=== PATIENT | female | born 1960 | race Caucasian/White ===

== ENCOUNTER 2017-04-10 09:41 | Emergency (ER) | payer MEDICARE ==
[2017-04-10] MEDS ORDERED: fentaNYL* 50 MCG/ML 2 ML VIAL (100 MCG VIAL) IV SLOW PU ONE ×2 (10:30→12:35)
[2017-04-10] MEDS ORDERED: Dexamethasone IV* 4 MG/ML 5 ML VIAL (20 MG) IVPB ONE (10:30)
[2017-04-10] MEDS ORDERED: Ketorolac INJ* 30 MG/ML 1 ML VIAL IV PUSH ONE (10:30)
[2017-04-10] MEDS ORDERED: Orphenadrine Citrate IV* 30 MG/ML 2 ML VIAL IV ONE (10:30)
--- NOTE | 2017-04-10 11:46 | RAD ---
HISTORY: Back pain COMPARISONS: CT dated April 04, 2015 VIEWS: 5 , Frontal, lateral, and coned-down lateral sacral views of the lumbar spine, frontal and lateral views of the thoracic spine FINDINGS: ALIGNMENT: There is mild sclerotic curvature of the spine VERTEBRAL BODIES: There is diffuse osteopenia. There is compression deformity of T12, this is stable from the previous CT examination. There has been interval development of anterior wedging of the L4 vertebral body. There is no significant osseous retropulsion JOINTS: There is facet hypertrophic change most pronounced along the lower lumbar spine INTERVERTEBRAL DISCS: There is diffuse loss of intervertebral disc height. SOFT TISSUE: Unremarkable. OTHER: The pelvis is unremarkable. The lung bases are clear. IMPRESSION: 1. OSTEOPENIA. 2. 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 3. CHRONIC COMPRESSION DEFORMITY OF T12. 4. DEGENERATIVE DISC DISEASE AND OSTEOARTHRITIS
[2017-04-10 13:03] VITALS: BP 104/63
--- NOTE | 2017-04-10 16:40 | ED ---
Breonna Cerda Auryana, scribed for Jase Mcfarland MD on 04/10/17 at 1222 . Back Pain - HPI Summary HPI Summary: 57 year old female presents with sharp back pain back pain s/p kicking out a bus window. Patient states that she was trapped in a bus bathroom while cleaning it - 06:00 until 09:30 - and the only way to get out was to kick out the window. She reports that she heard a snap and couldn't do anything after that. The pain is located at the middle and across her low back radiating down her legs. Currently, the pain is a 10/10. She denies any urinary or fecal incontinence/dysfunction. PMHx is significant for asthma, kidney stones, back injury (T12), gastric bypass, gastric ulcers, and incisional ventral hernia. She denies any back surgeries. FHx is significant for CAD, HTN, HLD, DVT, breast CA, MARYJANE, and glioblastoma. SHx is significant for tobacco use - rare alcohol and o recreational drug use. - History of Current Complaint Chief Complaint: EDBackInjuryPain Stated Complaint: BACK PAIN Time Seen by Provider: 04/10/17 10:04 Hx Obtained From: Patient Hx Last Menstrual Period: N/A Onset/Duration: Sudden Onset Onset/Duration: Started Hours Ago, Traumatic, Still Present Timing: Constant Back Pain Location: Is Discrete @ - MIDDLE AND ACROSS THE LOW BACK, Radiates To - down the legs Severity Initially: Severe Severity Currently: Severe Pain Intensity: 10 Pain Scale Used: 0-10 Numeric Character: Sharp Associated Signs And Symptoms: Positive: Negative. Negative: Bladder Incontinence, Bowel Incontinence Related History: Previous Back Injury - to T12 - Allergies/Home Medications Allergies/Adverse Reactions: Allergies Allergy/AdvReac Type Severity Reaction Status Date / Time Ethanol [From Lortab Elixir] Allergy HIVES AND Verified 08/28/16 13:55 SWELLING Hydrocodone Allergy HIVES AND Verified 08/28/16 13:55 [From Lortab Elixir] SWELLING PMH/Surg Hx/FS Hx/Imm Hx Endocrine/Hematology History: Denies: Hx Diabetes, Other Endocrine/Hematological Disorders Cardiovascular History: Denies: Hx Pacemaker/ICD, Other Cardiovascular Problems/Disorders Respiratory History: Reports: Hx Asthma - no flare ups lately, Hx Sleep Apnea Denies: Other Respiratory Problems/Disorders GI History: Reports: Hx Gastroesophageal Reflux Disease, Hx Ulcer Denies: Other GI Disorders History: Reports: Hx Kidney Stones, Other Problems/Disorders - Hx nephrolithiasis Musculoskeletal History: Reports: Hx Arthritis - BACK, RIGHT ARM Denies: Other Musculoskeletal History Sensory History: Reports: Hx Contacts or Glasses - GLASSES Denies: Hx Hearing Aid, Other Sensory Impairments Opthamlomology History: Reports: Hx Contacts or Glasses - GLASSES Denies: Other Sensory Impairments Neurological History: Denies: Other Neuro Impairments/Disorders Psychiatric History: Denies: Hx Panic Disorder, Other Psychiatric Issues/Disorders - Cancer History Hx Chemotherapy: No Hx Radiation Therapy: No - Surgical History Surgery Procedure, Year, and Place: gastric bypass 2009,GALLBLADDER -[facility] [place] , BLADDER SLING X2-[facility] [place],RT CARPAL TUNNEL X2, HERNIA SUGERY [facility] [place] 2011, ulcer Hx Anesthesia Reactions: No - Immunization History Date of Tetanus Vaccine: Up to date. Date of Influenza Vaccine: Fall 2011 Infectious Disease History: Denies: Traveled Outside the [place] in Last 30 Days - Family History Known Family History: Positive: Cardiac Disease, Hypertension - Social History Occupation: Disabled Lives: Alone Alcohol Use: None Substance Use Type: Reports: None Smoking Status (MU): Heavy Every Day Tobacco Smoker Type: Cigarettes Amount Used/How Often: 1.5 PACKS A DAY Have You Smoked in the Last Year: No Review of Systems Constitutional: Negative Negative: Fever Eyes: Negative ENT: Negative Cardiovascular: Negative Respiratory: Negative Gastrointestinal: Negative Genitourinary: Negative Negative: incontinence, other - no bowel incontinence Positive: Arthralgia - back pain Skin: Negative Neurological: Negative Psychological: Normal All Other Systems Reviewed And Are Negative: Yes Physical Exam - Summary Physical Exam Summary: General: Patient is a well developed female without any distress that is laying comfortably in the stretcher. Skin: Circle, warm, dry HEAD AND FACE: No signs of trauma. EYES: PERRLA, EOMI x 2. EARS: Hearing grossly intact. MOUTH: Oropharynx within normal limits. NECK: Supple, trachea is midline, no adenopathy, no JVD. CHEST: Symmetric, no tenderness at palpation LUNGS: CTA bilaterally, no rales, rhonchi or wheezing CVS: RRR, no murmur, rub, or gallop ABDOMEN: soft and Nontender without masses, no guarding or rebound. Bowel sounds are active. No Hepato-splenomegaly. No signs of inguinal hernias. BACK: Patient walked into the ED room with symmetric ambulation, No signs of limping, antalgic, able to bear weight. No signs of trauma, no soft tissue or muscle tenderness, positive spasm in the Paraspinal muscles of the lumbar and thoraccic spine. No masses palpated. Positive vertebral tenderness. No CVAT, no flank ecchymosis . No sacroiliac notch tenderness, No saddle anesthesia ROM: flexion/ extension/ lateral bending and rotation, note if limited or causes pain Straight Leg Raise: negative Patellar reflexes: brisk, symmetric Muscle strength lower extremities. Dorsiflexion/ plantar flexion of ankles. Heel/ toe walk Lower extremities: Femoral, popliteal, posterior tibial, and pedal pulses with in normal, Rectal exam declined. Triage Information Reviewed: Yes Vital Signs On Initial Exam: Initial Vitals Temp Pulse Resp BP Pulse Ox 98.2 F 76 18 117/77 99 04/10/17 09:45 04/10/17 09:45 04/10/17 09:45 04/10/17 09:45 04/10/17 09:45 Vital Signs Reviewed: Yes - Marianne Coma Scale Coma Scale Total: 15 Diagnostics - Vital Signs Vital Signs Temp Pulse Resp BP Pulse Ox 04/10/17 09:48 98.2 F 76 16 117/77 98 04/10/17 09:45 98.2 F 76 18 117/77 99 - Laboratory Lab Statement: Any lab studies that have been ordered have been reviewed, and results considered in the medical decision making process. - Radiology THORACIC Xray Interpretation: Positive (See Comments) - IMPRESSION: 1. OSTEOPENIA. 2. 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 3. CHRONIC COMPRESSION DEFORMITY OF T12. 4. DEGENERATIVE DISC DISEASE AND OSTEOARTHRITIS Radiology Interpretation Completed By: Radiologist LUMBAR Xray Interpretation: Positive (See Comments) - IMPRESSION: 1. OSTEOPENIA. 2. 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 3. CHRONIC COMPRESSION DEFORMITY OF T12. 4. DEGENERATIVE DISC DISEASE AND OSTEOARTHRITIS Radiology Interpretation Completed By: Radiologist Re-Evaluation - Re-Evaluation First Eval Re-Evaluation Time: 12:33 - discussed plan for discharge Change: Improved - patient walked to the bathroom and her pain is much improved Back Pain Course/Dx - Course Assessment/Plan: 57 year old female presents with sharp back pain back pain s/p kicking out a bus window. Patient states that she was trapped in a bus bathroom while cleaning it - 06:00 until 09:30 - and the only way to get out was to kick out the window. She reports that she heard a snap and couldn't do anything after that. The pain is located at the middle and across her low back radiating down her legs. Currently, the pain is a 10/10. She denies any urinary or fecal incontinence/dysfunction. PMHx is significant for asthma, kidney stones, back injury (T12), gastric bypass, gastric ulcers, and incisional ventral hernia. She denies any back surgeries. FHx is significant for CAD, HTN, HLD, DVT, breast CA, MARYJANE, and glioblastoma. SHx is significant for tobacco use - rare alcohol and o recreational drug use. T and L spine X ray IMPRESSION: 1. OSTEOPENIA. 2. 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 3. CHRONIC COMPRESSION DEFORMITY OF T12. 4. DEGENERATIVE DISC DISEASE AND OSTEOARTHRITIS. In the ED course she was given Toradol. Fentanyl, Decadron, Norflex. After medications she is feeling better. She was able to get up and ambulate to the bathroom. She reports no urinary or fecal discomfort. She reports no saddle anesthesia. She declined rectal exam. She is afebrile. I did not identify any red flags at this point. Since pain has improved I will discharge patient home with f/u of PMD and neurosurgery. She walked out of the emergency department. At this point I discussed all the findings and test results with the patient. Patient was instructed to return to the emergency room immediately if any of the symptoms return or worsens. Patient understands and agrees. Patient is able to ambulate freely w/o aid or limp in the ER. Plan of care was discussed with the patient and patient understands and agrees. All questions were answered at patient satisfaction. There were no further complaints or concerns. Neurological exam before discharge: Patient is alert and oriented x 3. No acute neurological deficits. Patient is hemodynamically stable. Patient is to follow up with primary care physician in the next 2 3 days. He understands and agrees. - Diagnoses Provider Diagnoses: L4 vertebral fracture, Back pain Discharge - Discharge Plan Condition: Stable Disposition: HOME Prescriptions: Ibuprofen TAB* [Motrin TAB* 600 MG] 600 mg PO Q6H PRN #30 tab PRN Reason: Pain Methocarbamol TAB* [Robaxin 500 MG TAB*] 750 mg PO TID #12 tab Methylprednisolone [Medrol Dosepak 4 MG*] 4 mg PO .SEE MARY INSTRUCTION #1 mary fentaNYL PATCH 25 MCG/HR* [Duragesic PATCH 25 Mcg/Hr*] 25 mcg TRANSDERM Q72H #3 patch MDD 1 every 72 hours Patient Education Materials: Vertebral Compression Fracture (ED), Narcotic Pain Management (ED), Back Pain (ED), Fentanyl (Absorbed through the skin) Referrals: Truong Leon MD [Medical Doctor] - 2 Days Cody Stewart MD [Primary Care Provider] - 3 Days The documentation as recorded by the Breonna santana Auryana accurately reflects the service I personally performed and the decisions made by , Jase Mcfarland MD.
== END 2017-04-10 13:01 | disposition home or self-care (01) ==
LOC: ED 09:41
DX: S32.049A Unspecified fracture of fourth lumbar vertebra, initial encounter for closed fracture (principal); M54.9 Dorsalgia, unspecified; F17.210 Nicotine dependence, cigarettes, uncomplicated; X50.0XXA Overexertion from strenuous movement or load, initial encounter; Y93.89 Activity, other specified; Y92.89 Other specified places as the place of occurrence of the external cause; M51.36 Other intervertebral disc degeneration, lumbar region; M47.9 Spondylosis, unspecified
CPT/HCPCS: 72070; 72100; 96374; 96375; 99282; J1885; J2360; J3010

== ENCOUNTER 2017-06-23 08:03 | Emergency (ER) | payer MEDICARE ==
[2017-06-23] MEDS ORDERED: Ketorolac INJ* 30 MG/ML 1 ML VIAL IV ONE (08:30)
[2017-06-23] MEDS ORDERED: NS 0.9% 1000 ML* 1,000 ML IV ONE ×2 (08:30→10:32)
[2017-06-23] MEDS ORDERED: Ondansetron INJ* 2 MG/ML VIAL IV ONE (08:38)
[2017-06-23 09:04] LABS: Hematocrit 47 % (35-47); Hemoglobin 15.4 g/dl (12.0-16.0); Mean Corpuscular HGB Conc 33 g/dl (31-36); Mean Corpuscular Hemoglobin 30 pg (27-31); Mean Corpuscular Volume 91 fL (80-97); Mean Platelet Volume 9 um3 (7.4-10.4); Red Blood Count 5.16 10^6/ul (4.0-5.4); Red Cell Distribution Width 13 % (10.5-15); White Blood Count 7.2 10^3/ul (3.5-10.8)
[2017-06-23 09:15] LABS: ALT 19 U/L (7-52); AST 18 U/L (13-39); Albumin 4.4 g/dL (3.2-5.2); Alkaline Phosphatase 112 U/L (34-104); Anion Gap 7 mmol/L (2-11); BUN/Creatinine Ratio 7.4 (8-20); Blood Urea Nitrogen 5 mg/dL (6-24); C Reactive Protein < 1.00 mg/L (< 5.00); CO2 Carbon Dioxide 24 mmol/L (22-32); Calcium 9.5 mg/dL (8.6-10.3); Chloride 108 mmol/L (101-111); EGFR African American 115.1 (>60); EGFR Non-African American 89.5 (>60); Globulin 2.5 g/dL (2-4); Glucose 103 mg/dL (70-100); Lipase 21 U/L (11.0-82.0); Potassium 3.7 mmol/L (3.5-5.0); Sodium 139 mmol/L (133-145); Total Protein 6.9 g/dL (6.4-8.9)
[2017-06-23 09:24] LABS: Urine Bacteria Absent (Absent); Urine Bilirubin Negative (Negative); Urine Glucose Negative (Negative); Urine Nitrite Negative (Negative)
--- NOTE | 2017-06-23 09:33 | RAD ---
INDICATION: RIGHT greater than LEFT bilateral flank pain. Post partial hysterectomy. Post bladder sling and hernia surgery. COMPARISON: April 17, 2013 CT. April 04, 2013 CT. April 10, 2017 lumbar spine radiographs. TECHNIQUE: Multidetector CT images were obtained from the lung bases to the ischial tuberosities. Evaluation of the viscera is limited without IV contrast. Multiplanar reformation. REPORT: Unremarkable visualized inferior thorax. Post cholecystectomy. Negative for biliary dilatation. Unremarkable liver. No CT abnormality of the pancreas or spleen. Postsurgical change of Sami-en-Y gastric bypass with the Sami limb coursing superior anterior to the transverse colon. Negative for CT abnormality of the upper GI, small bowel, appendix visualized along the RIGHT pelvic sidewall, or largely decompressed colon. Negative for ascites, free air, hernias. Normal adrenal glands. Unremarkable kidneys. No visualized intrarenal stones. Negative for hydronephrosis. Negative for focal renal lesions or perinephric inflammatory change. Unremarkable nondilated ureters. 2 mm LEFT pelvic phlebolith inferior to the level of the ureteropelvic junction is unchanged compared with the April 04, 2013 CT. Unremarkable vaginal cuff and residual cervix. Unremarkable adnexal regions. Negative for lymphadenopathy within limits of noncontrast CT. Normal diameter abdominal aorta and iliac arteries. Physiologic distention of the IVC. Mild to moderate anterior column compression fracture of L4 involving the superior endplate is grossly unchanged compared with the April 10, 2017 lumbar spine radiographs. The compression fracture at T12 is also unchanged. No new fracture or suspicious focal osseous lesion evident. IMPRESSION: 1. Post cholecystectomy and postsurgical change of Sami-en-Y gastric bypass. 2. Normal appendix visualized. No acute abnormality of the alimentary tract evident. 3. Negative for urolithiasis or hydronephrosis. 4. No acute abdominal pelvic pathologic process evident.
[2017-06-23] MEDS ORDERED: Morphine INJ* 4 MG/ML 1 ML SYRINGE IV ONE (10:32)
[2017-06-23 11:01] LABS: Urine Nitrite Negative (Negative)
[2017-06-23 11:02] LABS: Urine Bacteria Absent (Absent); Urine Bilirubin Negative (Negative); Urine Glucose Negative (Negative)
[2017-06-23 11:59] VITALS: BP 93/55
--- NOTE | 2017-06-23 18:20 | ED ---
Kal Cerda SooYoung, scribed for Jase Mcfarland MD on 06/23/17 at 0818 . Abdominal Pain/Female - HPI Summary HPI Summary: A 57 y/o F presents to ED with c/o bilateral flank pain onset approx 1 week ago , and worsening last night. Associated sx: n/v/d, dysuria, decreased urinary output. Denies: CP, SOB, palpations, fever, chills. Denies fall, trauma, heavy lifting. Pert PMHx: Kidney stones, broken back, but she describes this pain as different. Rates pain as 10 out of 10. - History of Current Complaint Chief Complaint: EDAbdPain Stated Complaint: FLANK PAIN BOTH SIDE Hx Obtained From: Patient Hx Last Menstrual Period: N/A Onset/Duration: Gradual Onset, Lasting Weeks - and worsening last night, Still Present Timing: Constant Severity Currently: Severe Pain Intensity: 10 Pain Scale Used: 0-10 Numeric Location: Flank - bilat Associated Signs and Symptoms: Positive: Urinary Symptoms - decreased urinary output, dysuria, Nausea, Vomiting, Diarrhea, Other: - neg: SOB, palpatations, chills. Negative: Fever, Chest Pain Allergies/Adverse Reactions: Allergies Allergy/AdvReac Type Severity Reaction Status Date / Time Hydrocodone Allergy HIVES AND Verified 08/28/16 13:55 [From Lortab Elixir] SWELLING Tramadol Allergy Hives Verified 06/23/17 08:09 PMH/Surg Hx/FS Hx/Imm Hx Previously Healthy: No Endocrine/Hematology History: Denies: Hx Diabetes, Other Endocrine/Hematological Disorders Cardiovascular History: Denies: Hx Pacemaker/ICD, Other Cardiovascular Problems/Disorders Respiratory History: Reports: Hx Asthma - no flare ups lately, Hx Sleep Apnea Denies: Other Respiratory Problems/Disorders GI History: Reports: Hx Gastroesophageal Reflux Disease, Hx Ulcer Denies: Other GI Disorders History: Reports: Hx Kidney Stones, Other Problems/Disorders - Hx nephrolithiasis Musculoskeletal History: Reports: Hx Arthritis - BACK, RIGHT ARM Denies: Other Musculoskeletal History Sensory History: Reports: Hx Contacts or Glasses - GLASSES Denies: Hx Hearing Aid, Other Sensory Impairments Opthamlomology History: Reports: Hx Contacts or Glasses - GLASSES Denies: Other Sensory Impairments Neurological History: Denies: Other Neuro Impairments/Disorders Psychiatric History: Denies: Hx Panic Disorder, Other Psychiatric Issues/Disorders - Cancer History Hx Chemotherapy: No Hx Radiation Therapy: No - Surgical History Surgery Procedure, Year, and Place: gastric bypass 2009,GALLBLADDER -[facility] [place] , BLADDER SLING X2-[facility] [place],RT CARPAL TUNNEL X2, HERNIA SUGERY [facility] [place] 2011, ulcer Hx Anesthesia Reactions: No - Immunization History Date of Tetanus Vaccine: Up to date. Date of Influenza Vaccine: Fall 2011 Infectious Disease History: Denies: Traveled Outside the [place] in Last 30 Days - Family History Known Family History: Positive: Cardiac Disease, Hypertension - Social History Occupation: Disabled Lives: With Family Alcohol Use: None Hx Substance Use: No Substance Use Type: Reports: None Hx Tobacco Use: Yes Smoking Status (MU): Heavy Every Day Tobacco Smoker Type: Cigarettes Amount Used/How Often: 1.5 PACKS A DAY Have You Smoked in the Last Year: No Review of Systems Negative: Fever, Chills Negative: Palpitations, Chest Pain Negative: Shortness Of Breath Positive: Vomiting, Diarrhea, Nausea Positive: dysuria, flank pain, other - decreased urinary output All Other Systems Reviewed And Are Negative: Yes Physical Exam - Summary Physical Exam Summary: VITAL SIGNS: Reviewed. GENERAL: Patient is a well-developed and nourished female who is lying comfortable in the stretcher. Patient is not in any acute respiratory distress. HEAD AND FACE: Normocephalic and atraumatic. EYES: PERRLA, EOMI x 2, No injected conjunctiva. EARS: Hearing grossly intact. Ear canals and tympanic membranes are WNL. MOUTH: Oropharynx within normal limits. NECK: Supple, trachea is midline, no adenopathy, no JVD. CHEST: Symmetric, no tenderness at palpation LUNGS: Clear to auscultation bilaterally. No wheezing or crackles. CVS: RRR, S1 and S2 present, no murmurs or gallops appreciated. ABDOMEN: Soft, BILATERAL CVA TENDERNESS. No signs of distention. Positive bowel sounds. No rebound, no guarding, and no masses palpated. No abdominal bruit or pulsations. EXTREMITIES: FROM in all major joints, no edema, no cyanosis or clubbing. NEURO: Alert and oriented x 3. No acute neurological deficits. Speech is normal. SKIN: Dry and warm Triage Information Reviewed: Yes Vital Signs On Initial Exam: Initial Vitals Temp Pulse Resp BP Pulse Ox 96.8 F 77 22 128/76 100 08/05/17 08:05 06/23/17 08:05 06/23/17 08:05 06/23/17 08:05 06/23/17 08:05 Vital Signs Reviewed: Yes Diagnostics - Vital Signs Vital Signs Temp Pulse Resp BP Pulse Ox 06/23/17 08:05 96.8 F 77 22 128/76 100 - Laboratory Lab Results: Lab Results 06/23/17 06/23/17 06/23/17 Range/Units 08:20 08:20 08:20 WBC 7.2 (3.5-10.8) 10^3/ul RBC 5.16 (4.0-5.4) 10^6/ul Hgb 15.4 (12.0-16.0) g/dl Hct 47 (35-47) % MCV 91 (80-97) fL MCH 30 (27-31) pg MCHC 33 (31-36) g/dl RDW 13 (10.5-15) % Plt Count 199 (150-450) 10^3/ul MPV 9 (7.4-10.4) um3 Neut % (Auto) 68.2 (38-83) % Lymph % (Auto) 20.1 L (25-47) % Fentress % (Auto) 5.5 (1-9) % Eos % (Auto) 5.1 (0-6) % Baso % (Auto) 1.1 (0-2) % Absolute Neuts (auto) 4.9 (1.5-7.7) 10^3/ul Absolute Lymphs (auto) 1.4 (1.0-4.8) 10^3/ul Absolute Monos (auto) 0.4 (0-0.8) 10^3/ul Absolute Eos (auto) 0.4 (0-0.6) 10^3/ul Absolute Basos (auto) 0.1 (0-0.2) 10^3/ul Absolute Nucleated RBC 0.01 10^3/ul Nucleated RBC % 0.1 Sodium 139 (133-145) mmol/L Potassium 3.7 (3.5-5.0) mmol/L Chloride 108 (101-111) mmol/L Carbon Dioxide 24 (22-32) mmol/L Anion Gap 7 (2-11) mmol/L BUN 5 L (6-24) mg/dL Creatinine 0.68 (0.51-0.95) mg/dL Est GFR ( Amer) 115.1 (>60) Est GFR (Non-Af Amer) 89.5 (>60) BUN/Creatinine Ratio 7.4 L (8-20) Glucose 103 H (70-100) mg/dL Lactic Acid 1.4 (0.5-2.0) mmol/L Calcium 9.5 (8.6-10.3) mg/dL Total Bilirubin 0.70 (0.2-1.0) mg/dL AST 18 (13-39) U/L ALT 19 (7-52) U/L Alkaline Phosphatase 112 H (34-104) U/L C-Reactive Protein < 1.00 (< 5.00) mg/L Total Protein 6.9 (6.4-8.9) g/dL Albumin 4.4 (3.2-5.2) g/dL Globulin 2.5 (2-4) g/dL Albumin/Globulin Ratio 1.8 (1-3) Lipase 21 (11.0-82.0) U/L Urine Color Urine Appearance Urine pH (5-9) Ur Specific Simpson (1.010-1.030) Urine Protein (Negative) Urine Ketones (Negative) Urine Blood (Negative) Urine Nitrate (Negative) Urine Bilirubin (Negative) Urine Urobilinogen (Negative) Ur Leukocyte Esterase (Negative) Urine WBC (Auto) (Absent) Urine RBC (Auto) (Absent) Ur Squamous Epith Cells (Absent) Calcium Oxalate Crystal (Absent) Urine Bacteria (Absent) Urine Glucose (Negative) Urine Ascorbic Acid (Negative) 06/23/17 06/23/17 Range/Units 09:00 10:45 WBC (3.5-10.8) 10^3/ul RBC (4.0-5.4) 10^6/ul Hgb (12.0-16.0) g/dl Hct (35-47) % MCV (80-97) fL MCH (27-31) pg MCHC (31-36) g/dl RDW (10.5-15) % Plt Count (150-450) 10^3/ul MPV (7.4-10.4) um3 Neut % (Auto) (38-83) % Lymph % (Auto) (25-47) % Fentress % (Auto) (1-9) % Eos % (Auto) (0-6) % Baso % (Auto) (0-2) % Absolute Neuts (auto) (1.5-7.7) 10^3/ul Absolute Lymphs (auto) (1.0-4.8) 10^3/ul Absolute Monos (auto) (0-0.8) 10^3/ul Absolute Eos (auto) (0-0.6) 10^3/ul Absolute Basos (auto) (0-0.2) 10^3/ul Absolute Nucleated RBC 10^3/ul Nucleated RBC % Sodium (133-145) mmol/L Potassium (3.5-5.0) mmol/L Chloride (101-111) mmol/L Carbon Dioxide (22-32) mmol/L Anion Gap (2-11) mmol/L BUN (6-24) mg/dL Creatinine (0.51-0.95) mg/dL Est GFR ( Amer) (>60) Est GFR (Non-Af Amer) (>60) BUN/Creatinine Ratio (8-20) Glucose (70-100) mg/dL Lactic Acid (0.5-2.0) mmol/L Calcium (8.6-10.3) mg/dL Total Bilirubin (0.2-1.0) mg/dL AST (13-39) U/L ALT (7-52) U/L Alkaline Phosphatase (34-104) U/L C-Reactive Protein (< 5.00) mg/L Total Protein (6.4-8.9) g/dL Albumin (3.2-5.2) g/dL Globulin (2-4) g/dL Albumin/Globulin Ratio (1-3) Lipase (11.0-82.0) U/L Urine Color Yellow Straw Urine Appearance Cloudy Clear Urine pH 5.0 6.0 (5-9) Ur Specific Simpson 1.016 1.003 L (1.010-1.030) Urine Protein Negative Negative (Negative) Urine Ketones Trace H Negative (Negative) Urine Blood 3+ H 2+ H (Negative) Urine Nitrate Negative Negative (Negative) Urine Bilirubin Negative Negative (Negative) Urine Urobilinogen Negative Negative (Negative) Ur Leukocyte Esterase Trace H Negative (Negative) Urine WBC (Auto) Trace(0-5/hpf) Trace(0-5/hpf) (Absent) Urine RBC (Auto) 3+(>10/hpf) H Trace(0-2/hpf) (Absent) Ur Squamous Epith Cells Present H (Absent) Calcium Oxalate Crystal Present H (Absent) Urine Bacteria Absent Absent (Absent) Urine Glucose Negative Negative (Negative) Urine Ascorbic Acid * H (Negative) Result Diagrams: 06/23/17 08:20 06/23/17 08:20 Lab Statement: Any lab studies that have been ordered have been reviewed, and results considered in the medical decision making process. - CT A/P CT CT Interpretation: No Acute Changes - IMPRESSION: 1. Post cholecystectomy and postsurgical change of Sami-en-Y gastric bypass. 2. Normal appendix visualized. No acute abnormality of the alimentary tract evident. 3. Negative for urolithiasis or hydronephrosis. 4. No acute abdominal pelvic pathologic process evident. CT Interpretation Completed By: Radiologist - EKG 0917 Cardiac Rate: Bradycardia - 54 bpm EKG Rhythm: Sinus Bradycardia ST Segment: Normal - no ST elevation Re-Evaluation - Re-Evaluation 1 Re-Evaluation Time: 11:43 Change: Improved Comment: Discussing results with pt. Pt states pain has significantly improved. Will D/C home. Abdominal Pain Fem Course/Dx - Course Course Of Treatment: Pt is a 57 y/o F presents to ED with c/o bilateral flank pain onset approx 1 week ago, and worsening last night. Rated as 10 out of 10. Associated sx: n/v/d, dysuria, decreased urinary output. Denies: CP, SOB, palpations, fever, chills. Denies fall, trauma, heavy lifting. Pert PMHx: Kidney stones, broken back. Blood work is without significant abnormalities. EKG shows sinus yelitza at 54 bpm, no ST elevation. UA is negative for UTI. ABD/ PEL CT shows no acute findings, "1. Post cholecystectomy and postsurgical change of Sami-en-Y gastric bypass. 2. Normal appendix visualized. No acute abnormality of the alimentary tract evident. 3. Negative for urolithiasis or hydronephrosis. 4. No acute abdominal pelvic pathologic process evident.". Pt does not have any kidney stones, however, pt has small amount of blood in urine consistent with passing stone. CT also showed pt has old T-12 and L-4 compression fx. The pain may be coming from the old fx or she may have passed a stone. In ED, pt given fluids, Toradol for pain, and one dose of morphine. After this medication, sx resolved. At this point, pt was asymptomatic. Because pt is feeling better, will D/C home with flexeril, percocet, and to f/u with PCP. Pt is hemodynamically stable, A&Ox3. I discussed all the findings and test results with the patient. Patient was instructed to return to the emergency room immediately if any of the symptoms return or worsens. They were explained the possibility of an early abdominal pathology which was not detected at this time despite the physical exam and testing. They understand and agree. Abdominal exam before discharge: Soft, NT. No signs of distention. BS present. No rebound no guarding, and no masses palpated. Patient is alert and oriented and hemodynamically stable. Patient is to follow up with primary care physician in the next 2 to 3 days. Patient agree and understands. - Diagnoses Differential Diagnosis: Positive: Bowel Obstruction, Constipation, Pancreatitis , Renal Colic, Urinary Tract Infection Provider Diagnoses: Bilateral flank pain, Back pain Discharge - Discharge Plan Condition: Stable Disposition: HOME Prescriptions: Cyclobenzaprine TAB* [Flexeril 10 MG TAB*] 10 mg PO TID #9 tab oxyCODONE/Acetamin 5/325 MG* [Percocet 5/325 TAB*] 1 tab PO Q6H PRN #12 tab MDD 4 PRN Reason: Pain Patient Education Materials: Oxycodone/Acetaminophen (By mouth), Cyclobenzaprine (By mouth), Flank Pain (ED), Back Pain (ED) Referrals: Cody Stewart MD [Primary Care Provider] - 3 Days Additional Instructions: Please return to the ED if you experience new or worsening symptoms. The documentation as recorded by the Kal santana SooYoung accurately reflects the service I personally performed and the decisions made by me, Jase Mcfarland MD.
== END 2017-06-23 12:15 | disposition home or self-care (01) ==
LOC: ED 08:03
DX: R10.84 Generalized abdominal pain (principal); M54.9 Dorsalgia, unspecified; R11.2 Nausea with vomiting, unspecified; R19.7 Diarrhea, unspecified; F17.210 Nicotine dependence, cigarettes, uncomplicated
CPT/HCPCS: 36415; 74176; 80053; 81003; 81015; 83605; 83690; 85025; 86140; 87086; 93005; 96374; 96375; 99284; J1885; J2270; J2405

== ENCOUNTER 2018-09-25 00:27 | Emergency (ER) | payer MEDICARE ==
--- NOTE | 2018-09-25 01:04 | ED ---
HPI Chest Pain - HPI Summary HPI Summary: This patient is a 58 year old F presenting to [facility] with a chief complaint of intermittent epigastric region since 22:30. Patient notes that the pain radiates to her anterior chest and her right arm. The patient rates the pain 10/ 10 in severity. Symptoms aggravated by nothing. Symptoms alleviated by nothing. Patient reports nausea. Patient denies dizziness or palpitations. Pt notes her last BM this morning and notes that it was normal. Patient notes that she had similar symptoms when she had an ulcer that burst in 2014. Patient took Tums and Tylenol but notes they did not alleviate her symptoms. - History of Current Complaint Chief Complaint: EDChestPainROMI Time Seen by Provider: 09/25/18 00:44 Hx Obtained From: Patient Hx Last Menstrual Period: N/A Onset/Duration: Started Hours Ago, Atraumatic, Still Present Initial Severity: Moderate Current Severity: Moderate Pain Intensity: 10 Pain Scale Used: 0-10 Numeric Chest Pain Radiates: Yes Chest Pain Radiates To:: Arm - right arm, Epigastric Aggravating Factor(s): Nothing Alleviating Factor(s): Nothing Associated Signs and Symptoms: Positive: Chest Pain, Nausea, Other: - right arm pain,. Negative: Dizziness, Palpitations Related History: Similar Episode/Dx as: - burst ulcer in 2014 - Allergy/Home Medications Allergies/Adverse Reactions: Allergies Allergy/AdvReac Type Severity Reaction Status Date / Time hydrocodone Allergy Hives Verified 09/25/18 00:35 tramadol Allergy Swelling Verified 09/25/18 00:35 Of Face,Lips,& Throat PMH/Surg Hx/FS Hx/Imm Hx Endocrine/Hematology History: Denies: Hx Diabetes, Other Endocrine/Hematological Disorders Cardiovascular History: Denies: Hx Hypertension, Hx Pacemaker/ICD, Other Cardiovascular Problems/ Disorders Respiratory History: Reports: Hx Asthma, Hx Sleep Apnea Denies: Other Respiratory Problems/Disorders - GASTRIC BYPASS, HEARNEA SURERY GI History: Reports: Hx Gastroesophageal Reflux Disease, Hx Ulcer Denies: Other GI Disorders History: Reports: Hx Kidney Stones, Other Problems/Disorders - Hx nephrolithiasis Musculoskeletal History: Reports: Hx Arthritis - BACK, RIGHT ARM Denies: Other Musculoskeletal History Sensory History: Reports: Hx Contacts or Glasses - GLASSES Denies: Hx Hearing Aid, Other Sensory Impairments Opthamlomology History: Reports: Hx Contacts or Glasses - GLASSES Denies: Other Sensory Impairments Neurological History: Denies: Other Neuro Impairments/Disorders Psychiatric History: Denies: Hx Panic Disorder, Other Psychiatric Issues/Disorders - Cancer History Hx Chemotherapy: No Hx Radiation Therapy: No - Surgical History Surgery Procedure, Year, and Place: gastric bypass 2009, GALLBLADDER -[facility] – [place] , BLADDER SLING X2-[facility] [place],RT CARPAL TUNNEL X2, HERNIA SUGERY [facility] 2011, ulcer 2015 Hx Anesthesia Reactions: No - Immunization History Date of Tetanus Vaccine: Up to date. Date of Influenza Vaccine: Fall 2011 Infectious Disease History: No Infectious Disease History: Denies: Traveled Outside the [place] in Last 30 Days - Family History Known Family History: Positive: Cardiac Disease, Hypertension - Social History Alcohol Use: None Hx Substance Use: No Substance Use Type: Reports: None Hx Tobacco Use: Yes Smoking Status (MU): Heavy Every Day Tobacco Smoker Type: Cigarettes Amount Used/How Often: 1.5 PACKS A DAY Have You Smoked in the Last Year: No Review of Systems Negative: Fever Positive: Chest Pain. Negative: Palpitations Positive: Abdominal Pain - epigastric, Nausea Negative: Rash Neurological: Other - negative dizziness All Other Systems Reviewed And Are Negative: Yes Physical Exam - Summary Physical Exam Summary: VITAL SIGNS: Reviewed. GENERAL: Patient is a well-developed and nourished FEMALE who is lying comfortable in the stretcher. Patient is not in any acute respiratory distress. HEAD AND FACE: No signs of trauma. No ecchymosis, hematomas or skull depressions. No sinus tenderness. EYES: PERRLA, EOMI x 2, No injected conjunctiva, no nystagmus. EARS: Hearing grossly intact. Ear canals and tympanic membranes are within normal limits. MOUTH: Oropharynx within normal limits. NECK: Supple, trachea is midline, no adenopathy, no JVD, no carotid bruit, no c- spine tenderness, neck with full ROM. CHEST: Symmetric, no tenderness at palpation LUNGS: Clear to auscultation bilaterally. No wheezing or crackles. CVS: Regular rate and rhythm, S1 and S2 present, no murmurs or gallops appreciated. ABDOMEN: Soft, epigastric tenderness. No signs of distention. No rebound no guarding, and no masses palpated. Bowel sounds are normal. EXTREMITIES: FROM in all major joints, no edema, no cyanosis or clubbing. NEURO: Alert and oriented x 3. No acute neurological deficits. Speech is normal and follows commands. SKIN: Dry and warm Triage Information Reviewed: Yes Vital Signs On Initial Exam: Initial Vitals Temp Pulse Resp BP Pulse Ox 97.3 F 71 22 136/88 100 09/25/18 00:29 09/25/18 00:29 18 00:29 09/25/18 00:29 09/25/18 00:29 Vital Signs Reviewed: Yes Diagnostics - Vital Signs Vital Signs Temp Pulse Resp BP Pulse Ox 09/25/18 00:29 97.3 F 71 22 136/88 100 - Laboratory Result Diagrams: 09/25/18 01:27 09/25/18 01:27 Lab Statement: Any lab studies that have been ordered have been reviewed, and results considered in the medical decision making process. - Radiology CXR Radiology Interpretation Completed By: ED Physician - Dr. Hays, pending official report Summary of Radiographic Findings: no acute process - EKG 00:46 Cardiac Rate: NL - at 71 bpm EKG Rhythm: Sinus Rhythm ST Segment: Normal Ectopy: None Summary of EKG Findings: NSR at 71 bpm with nml axis, nml intervals, and no ischemic changes Chest Pain Course/Dx - Course Course Of Treatment: This patient is a 58 year old F reporting intermittent epigastric region radiating to her chest and right arm since 22:30. Patient notes that the pain radiates to her anterior chest and her right arm. Patient notes that she had similar symptoms when she had an ulcer that burst in 2014. An EKG reveals NSR at 71 bpm with nml axis, nml intervals, and no ischemic changes. CXR reveals no acute process. Test results with no significant abnormalities. In the ED course the patient was given IV fluids, viscous xylocaine, Protonix, Reglan, and Maalox Plus.Patient is feeling better and is pain free. Reviewed lab results with her. Patient has elevated liver enzymes but bilirubin is nml so no obstructive jaundice. Patient will be discharged with follow up from PCP and Dr. Duran, long term care administrator. The patient is agreeable with this plan. - Diagnoses Provider Diagnoses: Elevated liver enzymes, Epigastric pain Discharge - Sign-Out/Discharge Documenting (check all that apply): Patient Departure - discharge home - Discharge Plan Condition: Stable Disposition: HOME Patient Education Materials: Epigastric Pain (ED) Referrals: Carmelo Avila DO [Primary Care Provider] - 2 Days Neo Duran DO [Doctor of Osteopathy] - 2 Days Additional Instructions: Follow up with primary care physician and Dr. Duran, long term care administrator, in 2- 3 days. Return to the emergency department with any new or worsening symptoms. - Attestation Statements Document Initiated by Scribe: Yes Documenting Scribe: Stacie Hansen Provider For Whom Scribe is Documenting (Include Credential): Bobby Hays MD Scribe Attestation: Stacie Cerda, scribed for Bobby Hays MD on 09/25/18 at 0456.
[2018-09-25] MEDS ORDERED: Pantoprazole IV* 40 MG IV ONE (01:09)
[2018-09-25] MEDS ORDERED: NS 0.9% 1000 ML* 1,000 ML IV ONE ×2 (01:09→01:12)
[2018-09-25] MEDS ORDERED: Al Hydrox/Mg Hydrox/Simet LIQ* 30 ML UDC PO ONE (01:10)
[2018-09-25] MEDS ORDERED: Metoclopramide IV* 5 MG/ML 2 ML VIAL IV SLOW PU ONE (01:10)
[2018-09-25] MEDS ORDERED: Lidocaine 2% VISCOUS* 15 ML UDC PO ONE (01:10)
[2018-09-25] MEDS ORDERED: Lidocaine 2% VISCOUS* 15 ML UDC ONE (01:33)
[2018-09-25 01:35] LABS: ABS Basophils 0.1 10^3/ul (0-0.2); ABS Eosinophils 0.2 10^3/ul (0-0.6); ABS Lymphocytes 1.4 10^3/ul (1.0-4.8); ABS Monocytes 0.3 10^3/ul (0-0.8); ABS Neutrophils 3.4 10^3/ul (1.5-7.7); ABS Nucleated RBC 0 10^3/ul; Eosinophil % 3.4 % (0-6); Hematocrit 42 % (35-47); Hemoglobin 14.4 g/dl (12.0-16.0); Lymphocyte % 27.2 % (25-47); Mean Corpuscular HGB Conc 34 g/dl (31-36); Mean Corpuscular Hemoglobin 30 pg (27-31); Mean Corpuscular Volume 87 fL (80-97); Mean Platelet Volume 8.8 fL (7.4-10.4); Nucleated Red Blood Cells % 0.1; Platelet Count 162 10^3/ul (150-450); Red Blood Count 4.88 10^6/ul (4.00-5.40); Red Cell Distribution Width 13 % (10.5-15); White Blood Count 5.3 10^3/ul (3.5-10.8)
[2018-09-25 01:42] LABS: INR 0.86 (0.77-1.02)
[2018-09-25 01:54] LABS: EGFR Non-African American 83.5 (>60)
[2018-09-25 04:09] VITALS: BP 103/69
== END 2018-09-25 05:14 | disposition home or self-care (01) ==
LOC: ED 00:27
DX: R10.13 Epigastric pain (principal); R94.5 Abnormal results of liver function studies; Z88.5 Allergy status to narcotic agent; Z98.84 Bariatric surgery status; F17.210 Nicotine dependence, cigarettes, uncomplicated
CPT/HCPCS: 36415; 71045; 80053; 82150; 83690; 83735; 84484; 85025; 85610; 85730; 93005; 96374; 96375; 99283; A9270-GY; J2765

== ENCOUNTER 2019-12-30 14:06 | Inpatient (IN) | payer MEDICARE ==
[2019-12-30 14:46] LABS: ABS Eosinophils 0.1 10^3/ul (0-0.6); ABS Lymphocytes 1.5 10^3/ul (1.0-4.8); ABS Monocytes 0.3 10^3/ul (0-0.8); ABS Neutrophils 6.5 10^3/ul (1.5-7.7); Eosinophil % 0.9 %; Hematocrit 45 % (35-47); Hemoglobin 15.1 g/dL (12.0-16.0); Lymphocyte % 17.6 %; Mean Corpuscular HGB Conc 34 g/dL (31-36); Mean Corpuscular Hemoglobin 29 pg (27-31); Mean Corpuscular Volume 87 fL (80-97); Mean Platelet Volume 8.4 fL (7.4-10.4); Nucleated Red Blood Cells % 0.1; Platelet Count 212 10^3/uL (150-450); Red Blood Count 5.15 10^6 /uL (3.70-4.87); Red Cell Distribution Width 13 % (10-15); White Blood Count 8.4 10^3/uL (3.5-10.8)
[2019-12-30 14:51] LABS: INR 0.98 (0.82-1.09)
[2019-12-30] MEDS ORDERED: NS 0.9% 1000 ML** 1,000 ML IV ONE ×2 (15:02→16:56)
[2019-12-30] MEDS ORDERED: Ondansetron INJ* 2 MG/ML VIAL IV ONE (15:02)
[2019-12-30] MEDS ORDERED: Morphine 4 MG/ML VIAL (1 ml) 4 MG/ML VIAL IV ONE ×2 (15:02→16:56)
--- NOTE | 2019-12-30 15:05 | ED ---
Abdominal Pain/Female - HPI Summary HPI Summary: The patient is a 59-year-old female presenting with epigastric pain radiating through to the back onset this morning. She reports a history of gastric bypass surgery in 2010 and hernia repair in 2016, but otherwise there were no complications with the surgeries. This morning, she began feeling a sharp, stabbing pain in the upper abdomen. The pain is currently rated 10/10 in severity. She has taken Pepto-Bismol and Maalox to no relief. She does not overuse Ibuprofen. She endorses nausea without vomiting. She denies any fevers, CP, SOB, dysuria, or burning with urination. Past medical history significant for cholecystectomy, asthma, sleep apnea, GERD, gastric ulcer, nephrolithiasis. Current smoker, no EtOH, no substance use. Medications reviewed. Allergies noted. - History of Current Complaint Chief Complaint: EDAbdPain Stated Complaint: SEVERE STOMACH PAIN PER PT Time Seen by Provider: 12/30/19 14:57 Hx Obtained From: Patient Hx Last Menstrual Period: N/A Onset/Duration: Sudden Onset, Lasting Hours, Still Present Timing: Constant Severity Initially: Moderate Severity Currently: Severe Pain Intensity: 10 Pain Scale Used: 0-10 Numeric Location: Epigastric Radiates: Yes Radiates to: Back Character: Sharp Aggravating Factor(s): Nothing Alleviating Factor(s): Nothing Associated Signs and Symptoms: Positive: Back Pain, Nausea. Negative: Fever, Chest Pain, Urinary Symptoms, Vomiting, Other: - SOB Allergies/Adverse Reactions: Allergies Allergy/AdvReac Type Severity Reaction Status Date / Time hydrocodone Allergy Hives Verified 12/30/19 15:04 ibuprofen Allergy History of Verified 12/30/19 15:04 gastric ulcers tramadol Allergy Swelling Verified 12/30/19 15:04 Of Face,Lips,& Throat Home Medications: Home Medications Acetaminophen TAB* [Tylenol TAB*] 325 mg PO Q4H PRN 12/30/19 [History Confirmed 12/30/19] Omeprazole (Nf) [Prilosec (NF)] 40 mg PO DAILY 12/30/19 [History Confirmed 12/30] PMH/Surg Hx/FS Hx/Imm Hx Endocrine/Hematology History: Denies: Hx Diabetes, Other Endocrine/Hematological Disorders Cardiovascular History: Denies: Hx Hypertension, Hx Pacemaker/ICD, Other Cardiovascular Problems/ Disorders Respiratory History: Reports: Hx Asthma, Hx Sleep Apnea Denies: Other Respiratory Problems/Disorders - GASTRIC BYPASS, HEARNEA SURERY GI History: Reports: Hx Gastroesophageal Reflux Disease, Hx Ulcer Denies: Other GI Disorders History: Reports: Hx Kidney Stones, Other Problems/Disorders - Hx nephrolithiasis Musculoskeletal History: Reports: Hx Arthritis - BACK, RIGHT ARM Denies: Other Musculoskeletal History Sensory History: Reports: Hx Contacts or Glasses - GLASSES Denies: Hx Hearing Aid, Other Sensory Impairments Opthamlomology History: Reports: Hx Contacts or Glasses - GLASSES Denies: Other Sensory Impairments Neurological History: Denies: Other Neuro Impairments/Disorders Psychiatric History: Denies: Hx Panic Disorder, Other Psychiatric Issues/Disorders - Cancer History Hx Chemotherapy: No Hx Radiation Therapy: No - Surgical History Surgical History: Yes Surgery Procedure, Year, and Place: gastric [place] 2009[place] [place] [place], HERNIA SUGERY [facility] 2011, ulcer 2014 Hx Anesthesia Reactions: No - Immunization History Date of Tetanus Vaccine: Up to date. Date of Influenza Vaccine: Fall 2011 Infectious Disease History: No Infectious Disease History: Denies: Traveled Outside the [place] in Last 30 Days - Family History Known Family History: Positive: Cardiac Disease, Hypertension - Social History Alcohol Use: None Hx Substance Use: No Substance Use Type: Reports: None Hx Tobacco Use: Yes Smoking Status (MU): Heavy Every Day Tobacco Smoker Type: Cigarettes Amount Used/How Often: 1.5 PACKS A DAY Have You Smoked in the Last Year: No Review of Systems Positive: Fever Negative: Chest Pain Negative: Shortness Of Breath Positive: Abdominal Pain - epigastric radiating into back, Nausea. Negative: Vomiting All Other Systems Reviewed And Are Negative: Yes Physical Exam - Summary Physical Exam Summary: Constitutional: Well-developed, Well-nourished, Alert. (-) Distressed Skin: Warm, Dry HENT: Normocephalic; Atraumatic Eyes: Conjunctiva normal Neck: Musculoskeletal ROM normal neck. (-) JVD, (-) Stridor, (-) Tracheal deviation Cardio: Rhythm regular, rate normal, Heart sounds normal; Intact distal pulses; The pedal pulses are 2+ and symmetric. Radial pulses are 2+ and symmetric. (-) Murmur Pulmonary/Chest wall: Effort normal. (-) Respiratory distress, (-) Wheezes, (-) Rales Abd: Soft, (+) Epigastric tenderness, (-) Distension, (-) Guarding, (-) Rebound Musculoskeletal: (-) Edema Lymph: (-) Cervical adenopathy Neuro: Alert, Oriented x3 Psych: Mood and affect Normal Triage Information Reviewed: Yes Vital Signs On Initial Exam: Initial Vitals Temp Pulse Resp BP Pulse Ox 97.7 F 70 18 130/92 98 12/30/19 14:21 12/30/19 14:21 12/30/19 14:21 12/30/19 14:21 12/30/19 14:21 Vital Signs Reviewed: Yes Procedures - Sedation Patient Received Moderate/Deep Sedation with Procedure: No Diagnostics - Vital Signs Vital Signs Temp Pulse Resp BP Pulse Ox 12/30/19 14:21 97.7 F 70 18 130/92 98 - Laboratory Lab Results: Lab Results 12/30/19 12/30/19 Range/Units 14:33 14:33 WBC 8.4 (3.5-10.8) 10^3/uL RBC 5.15 H (3.70-4.87) 10^6 /uL Hgb 15.1 (12.0-16.0) g/dL Hct 45 (35-47) % MCV 87 (80-97) fL MCH 29 (27-31) pg MCHC 34 (31-36) g/dL RDW 13 (10-15) % Plt Count 212 (150-450) 10^3/uL MPV 8.4 (7.4-10.4) fL Neut % (Auto) 77.5 % Lymph % (Auto) 17.6 % [place] % (Auto) 3.4 % Eos % (Auto) 0.9 % Baso % (Auto) 0.6 % Absolute Neuts (auto) 6.5 (1.5-7.7) 10^3/ul Absolute Lymphs (auto) 1.5 (1.0-4.8) 10^3/ul Absolute Monos (auto) 0.3 (0-0.8) 10^3/ul Absolute Eos (auto) 0.1 (0-0.6) 10^3/ul Absolute Basos (auto) 0.0 (0-0.2) 10^3/ul Absolute Nucleated RBC 0.0 10^3/ul Nucleated RBC % 0.1 INR (Anticoag Therapy) 0.98 (0.82-1.09) Result Diagrams: 12/30/19 14:33 12/30/19 14:33 Lab Statement: Any lab studies that have been ordered have been reviewed, and results considered in the medical decision making process. - CT Abd/Pel CT CT Interpretation Completed By: Radiologist Summary of CT Findings: Impression: 1. There is oral contrast in the distal esophagus with mild esophageal wall thickening, cannot exclude reflux esophagitis. 2. No other acute CT pathology. ED physician has reviewed this report. Re-Evaluation - Re-Evaluation First Eval Re-Evaluation Time: 17:00 Comment: Patient continues to be in pain. Will consult Dr. Garcia. Abdominal Pain Fem Course/Dx - Course Course Of Treatment: 59 y/o female presenting with stabbing epigastric pain onset this morning accompanied by nausea. Hx of gastric bypass, hernia repair, cholecystectomy. Physical exam reveals a soft and nondistended abdomen with epigastric tenderness. IV access obtained. Patient administered fluids, Morphine for pain, and Zofran for nausea. Blood work reveals alkaline phosphatase of 126. Negative first and second troponins. Patient continues to be in pain, and she is administered more fluids and Morphine. Abd/Pel CT reveals possible esophagitis. I spoke with Dr. Garcia from surgery, who will come see the patient in the ED since he has seen her before for abdominal surgery. He recommends admission for pain management and possible endoscopy. Patient understands and agrees with plan. - Diagnoses Provider Diagnoses: Epigastric pain, Gastritis - Provider Notifications Discussed Care Of Patient With: Aidan Garcia - surgery Time Discussed With Above Provider: 18:00 Instructed by Provider To: Other - I spoke with Dr. Garcia who will come see the patient in the ED since he has seen her before for abdominal surgery. He recommends admission for pain management and possible endoscopy. Discharge ED - Sign-Out/Discharge Documenting (check all that apply): Patient Departure - Patient accepted for admission by Dr. Garcia. - Discharge Plan Condition: Stable Disposition: ADMITTED TO [facility] - Billing Disposition and Condition Condition: STABLE Disposition: Admitted to [facility] - Attestation Statements Document Initiated by Scribe: Yes Documenting Scribe: Rebecca Wilhelm Provider For Whom Scribe is Documenting (Include Credential): Dr. Jose Juan Barrera DO Scribe Attestation: I, Rebecca Wilhelm, scribed for Dr. Jose Juan Barrera DO on 12/30/19 at 2032. Scribe Documentation Reviewed: Yes Provider Attestation: The documentation as recorded by the scribe, Rebecca Wilhelm accurately reflects the service I personally performed and the decisions made by me, Dr. Jose Juan Barrera DO Status of Scribe Document: Viewed
[2019-12-30 15:07] LABS: Troponin I 0.01 ng/mL (<0.03)
[2019-12-30 15:15] LABS: Albumin 4.8 g/dL (3.2-5.2); BUN/Creatinine Ratio 13.4 (8-20); Calcium 9.7 mg/dL (8.6-10.3); EGFR African American 109.4 (>60); EGFR Non-African American 90.4 (>60); Globulin 2.4 g/dL (2-4); Potassium 4.2 mmol/L (3.5-5.0); Total Bilirubin 0.5 mg/dL (0.2-1.0); Total Protein 7.2 g/dL (6.4-8.9)
[2019-12-30] MEDS ORDERED: Iohexol 300* (CONTRAST) 10 ML SDV IV ONE (17:03)
[2019-12-30] MEDS: HYDROmorphone INJ* 0.5 MG/0.5 ML SYRINGE IV SLOW PU PRN ×2 (19:23→21:41)
[2019-12-30] MEDS: Ondansetron INJ* 2 MG/ML VIAL IV PRN (19:23)
--- NOTE | 2019-12-30 19:57 | HP ---
CC: Carmelo Avila DO; [facility] * HISTORY AND PHYSICAL: DATE OF ADMISSION: 12/30/19 CHIEF COMPLAINT: Epigastric abdominal pain. HISTORY OF PRESENT ILLNESS: This is a 59-year-old female known to our service with a history of laparoscopic Sami-en-Y gastric bypass performed in June 2010 , status post laparotomy for perforated marginal ulcer in March 2013, and status post open repair of a ventral incisional hernia with mesh in August 2014. She reports she had been taking her omeprazole 40 mg daily as recommended and had actually undergone evaluation with upper endoscopy about a year ago. Today, she woke up around 5 a.m. and had half a cup of coffee, then began having severe epigastric abdominal pain radiating to her back. No associated nausea, vomiting. She had a normal bowel movement yesterday. She denies fevers or chills. She presented to [facility] Emergency Room and was evaluated with normal CBC and comprehensive metabolic panel except for elevated alk phos. She was sent for CT imaging, which revealed postoperative changes. She did not have any evidence of obstruction or dilation of the remnant stomach. She received 2 doses of intravenous morphine without relief of her pain. Due to need for further workup and IV hydration and pain control, she is being admitted for observation to [facility]. PAST MEDICAL HISTORY: Significant for history of iron-deficiency anemia, gastroesophageal reflux disease, and ulcer. PAST SURGICAL HISTORY: Significant for the above surgeries as well as a laparoscopic cholecystectomy in 1992, partial hysterectomy, as well as bladder surgery. The patient has also had carpal tunnel release in 2000 and 2004, tonsillectomy, and wisdom teeth extraction. MEDICATIONS: 1. [place] multivitamin twice a day. 2. Omeprazole 40 mg daily. ALLERGIES: TRAMADOL has caused rash and lip swelling. FAMILY HISTORY: Mother had uterine and breast cancer. Father had brain cancer. Brother had lung cancer. There is also history of sarcoidosis. SOCIAL HISTORY: Has a history of smoking less than a pack a day for 10 years and more. She reports she had recently stopped smoking after starting again a few months ago. REVIEW OF SYSTEMS: A 14-point review of systems was completed and findings were significant for the above-mentioned positives, otherwise negative. PHYSICAL EXAMINATION VITAL SIGNS: She is a 5-feet 2-inch female, weighing 141 pounds with a BMI of 25.8. She has a temperature of 97.7, her pulse is 80, respirations are 18, blood pressure 140/93, O2 sat is 97%. HEENT: Head is normocephalic and atraumatic. Sclerae anicteric and mucous membranes moist. There is no otorrhea or rhinorrhea. NECK: Symmetrical. Trachea is midline. It is supple. No palpable lymph nodes or masses. LUNGS: Clear to auscultation bilaterally without wheezes, rales, or rhonchi. HEART: Regular. S1, S2. No murmurs, rubs, or gallops appreciated. ABDOMEN: The abdomen has multiple scars. Bowel sounds are diminished. It is soft. There is tenderness in the epigastrium to palpation. No rigidity. EXTREMITIES: Warm without cyanosis, clubbing, or edema. DIAGNOSTIC STUDIES/LAB DATA: WBC is 8.4, hemoglobin 15.1, hematocrit of 45, platelets 212. Chemistries normal except for the elevated alk phos. Lipase was normal. Glucose was elevated at 101. INR was normal. CT scan imaging was reviewed. IMPRESSION: A 59-year-old female with history of prior gastric bypass with perforated ulcer, being treated with a PPI. She has been a patient of GI and has undergone endoscopy a year ago with findings of mild gastritis. PLAN/RECOMMENDATIONS: She is admitted to the surgical service for IV hydration , limited oral intake, and IV PPI. We will have GI evaluate for consideration of upper endoscopy. [id number]/[facility] #: [id number] MTDD
[2019-12-30] MEDS: Pantoprazole IV* 40 MG IV SCH (20:48)
[2019-12-30] MEDS: Lactated Ringers 1000 ML Bag* 1,000 ML IV SCH (21:44)
[2019-12-31] MEDS: HYDROmorphone INJ* 0.5 MG/0.5 ML SYRINGE IV SLOW PU PRN ×7 (02:21→23:34)
[2019-12-31] MEDS: Ondansetron INJ* 2 MG/ML VIAL IV PRN ×3 (02:21→13:30)
[2019-12-31] MEDS: Acetaminophen TAB* 325 MG PO PRN ×2 (04:51→17:20)
[2019-12-31] MEDS: Multivitamins/Minerals TAB PO SCH (08:11)
[2019-12-31] MEDS: Lactated Ringers 1000 ML Bag* 1,000 ML IV SCH ×2 (08:24→23:05)
[2019-12-31] MEDS: PROCHLORPERAZINE INJ 5 MG/ML 2 ML VIAL IV PRN ×2 (10:49→17:20)
--- NOTE | 2019-12-31 11:33 | PN ---
Progress Note - Progress Note Date of Service: 12/31/19 Note: S: Reports she is still feeling epigastric pain she describes as sharp and radiating to the back. Last BM yesterday, well formed and without blood. States she has been nauseous and vomiting, though not much content to vomit. She was given compazine just recently, which may now be helping. Denies fever, chills, urinary changes, SOB. Reports that she feels weak. O: Vital Signs - 8 hr 12/31/19 12/31/19 12/31/19 04:53 04:55 08:00 Temperature Pulse Rate Respiratory 20 20 18 Rate Blood Pressure (mmHg) O2 Sat by Pulse Oximetry 12/31/19 12/31/19 12/31/19 08:05 08:11 08:18 Temperature 97.8 F Pulse Rate 65 Respiratory 18 18 16 Rate Blood Pressure 118/71 (mmHg) O2 Sat by Pulse 97 Oximetry 12/31/19 12/31/19 12/31/19 09:25 10:53 11:04 Temperature 97.7 F Pulse Rate 73 Respiratory 18 18 16 Rate Blood Pressure 129/68 (mmHg) O2 Sat by Pulse 97 Oximetry Intake and Output Last 24 Hours 12/29/19 12/30/19 12/31/19 01/01/20 06:59 06:59 06:59 06:59 Intake Total 2440 980 Output Total 500 Balance 1940 980 Weight 141 lb Intake: IV Fluids 2000 980 LR 980 Oral 440 Output: Urine 500 PEX: General: Alert, in NAD. Integumentary: No rashes, jaundice, lesions. HEENT: Oropharynx clear. PERRLA. Heart: RRR, no MRG. Lungs: CTAB, no WRR. ABD: Minimal BS present. Soft, nondistended. Tender in epigastrium. No rebound. Extremities: Calves soft and nontender. Distal pulses intact bilaterally. No edema. Assessment and plan: 59 yo F with history of LRYGB in 2009, perforated marginal ulcer in 2012, ventral incisional hernia repair with mesh 2013, and gastritis with epigastric abdominal pain and nausea. Will be getting an EGD today for further evaluation. NPO for now, continue IV hydration and IV PPI.
[2019-12-31] MEDS ORDERED: fentaNYL* 50 MCG/ML 2 ML VIAL (100 MCG VIAL) ONE (13:32)
[2019-12-31] MEDS ORDERED: Midazolam* 1 MG/ML 10 ML VIAL (10 MG) ONE (13:32)
--- NOTE | 2019-12-31 16:37 | PRO ---
CC: Dr. Aidan Garcia * DATE OF PROCEDURE: 12/31/19 - ROOM #[id number] PROCEDURE: EGJ - upper endoscopy with biopsy. REFERRING PROVIDER: Dr. Aidan Garcia. INDICATIONS: The patient has a history of gastric Sami-en-Y bypass. Complicated by marginal ulcer with perforation, status post laparotomy with patch repair. Also ventral hernia repair. Had episode of severe abdominal pain in December 2018. Upper endoscopy was unrevealing. The patient has been managed with omeprazole 40 mg daily. Was in usual state of health until yesterday morning when she developed severe abdominal pain. Epigastric in location. Imaging demonstrated possible thickening of the esophageal wall. Scope planned to assess the area for acute findings. MEDICATIONS GIVEN: Midazolam 9 mg IV, Fentanyl 75 mcg IV. DESCRIPTION OF PROCEDURE: Full disclosure of risks was reviewed with the patient as detailed on the consent form. The patient was placed in the left lateral decubitus position and monitored with continuous pulse oximetry, capnography, interval blood pressure monitoring and direct observation. A bite- block was placed between the patient's teeth and adult gastroscope was then inserted into the patient's mouth and advanced down the esophagus into the stomach and into the distal duodenum. Findings and interventions are described below. FINDINGS: Esophagus was a normal tubular structure without rings or strictures. No esophagitis. No fluid seen in the esophagus on initial intubation. GE junction was at 40 cm. Scope was then advanced into a gastric pouch, measuring 5 cm. Gastric pouch was unremarkable except for several retained rolando. There was mild erythema around the rolando. No ulcers. Biopsy obtained from the gastric pouch for CLOtest. The scope was then advanced through the anastomosis. The anastomosis was slightly , although there was no resistance to the scope advanced through this area. There was no stricture apparent. The patient seemed to be uncomfortable as the scope was in this area. Careful examination was performed over several minutes using water lavage. No erosions or ulcers seen. Scope was then advanced into the jejunal limb x40 cm. Jejunal limb was normal in appearance. Biopsies obtained. Scope was then withdrawn from the patient. The patient tolerated the procedure well and was recovered in the GI recovery area. IMPRESSION: 1. Complete upper endoscopy through gastrojejunal anastomosis to the jejunal limb. 2. No acute findings. No explanation for the patient's acute onset epigastric pain noted during this exam. Findings reviewed with Dr. Garcia. FOLLOWUP: 1. Could consider switching from omeprazole to Nexium 40 mg daily or twice daily depending on symptom response. The patient felt that she did better on the Nexium in the past. 2. Surgery will continue to follow. Thank you very much for this consult. [id number]/[facility] #: [id number] MTDDavid
--- NOTE | 2019-12-31 17:02 | CONS ---
CC: Dr. Aidan Garcia * GASTROENTEROLOGY CONSULTATION REPORT: DATE OF CONSULT: 12/31/19 REFERRING PROVIDER: Dr. Aidan Garcia. REASON FOR CONSULT: Abdominal pain. HISTORY OF PRESENT ILLNESS: Ms. Solis is a 59-year-old woman with a history of laparoscopic Sami-en-Y gastric bypass in 2009, complicated by a perforated marginal ulcer with patch repair in 2012, and status post open repair of ventral incisional hernia with mesh in 2013, who is admitted with acute onset severe abdominal pain. Chart reviewed. The patient's history is notable for the gastric bypass with perforated marginal ulcer in the past. She had acute abdominal pain necessitating ED visit in December 2018. EGD by Dr. Campbell Reddy at that point was unremarkable except for mild streaky gastritis in the gastric pouch. The patient has been maintained on omeprazole 40 mg daily. She was in usual state of health until yesterday morning when she woke up with severe epigastric pain. Associated with nausea and a few episodes of small volume emesis. She has been passing flatus. No change in bowel habits. No recent constipation or diarrhea. Presented to the ED for evaluation. Labs notable only for mild chronic elevation in alk phos. CT abdomen and pelvis noted postoperative changes in the stomach as well as mild esophageal wall thickening. GI consulted. On interview, Ms. Solis reports that the abdominal pain is unchanged. She reports that the pain is similar to last year, although more severe in intensity. No NSAID use. No ongoing iron use. PAST MEDICAL HISTORY: 1. GERD. 2. Marginal ulcer perforation in the setting of gastric bypass, Sami-en-Y. PAST SURGICAL HISTORY: 1. Laparoscopic cholecystectomy. 2. Partial hysterectomy. 3. Bladder surgery. 4. Carpal tunnel release. 5. Tonsillectomy. 6. [place] teeth extraction. 7. Sami-en-Y gastric bypass. 8. Status post laparotomy for perforated marginal ulcer with patch repair. 9. Open repair of ventral incisional hernia with mesh. MEDICATIONS: 1. Multivitamin daily. 2. Omeprazole 40 mg daily. ALLERGIES: TRAMADOL causes rash and lip swelling. FAMILY HISTORY: Mother with uterine and breast cancer. Father with brain cancer. Brother with lung cancer. History of sarcoidosis in the family. No known GI or liver disease. SOCIAL HISTORY: History of smoking for a number of years. Quit in 2005. Denies any significant alcohol use. No drug use. REVIEW OF SYSTEMS: A complete 14-point review of systems negative except as mentioned above. PHYSICAL EXAM: Vital Signs: Afebrile, heart rate in the 70s, blood pressure 140/74, 100% on room air. General: Tired and mildly ill appearing. Emesis in basin contains a small amount of frothy liquid. HEENT: Mucous membranes moist. Cardiovascular: Regular rate and rhythm. Lungs: Breathing comfortably. Abdomen: Soft and mildly tender across the upper abdomen. No rebound tenderness or guarding. Extremities: No significant edema. DIAGNOSTIC STUDIES/LAB DATA: Labs reviewed. White count 8.4, hemoglobin 15.1, hematocrit 45, platelet count 212. INR 0.98. Alkaline phosphatase 126, which is consistent with labs checked in December 2018, at which point it was 130. Lipase normal. Remainder of LFTs normal. Imaging: CT abdomen and pelvis reviewed. There is oral contrast in the distal esophagus with mild esophageal wall thickening. Postoperative changes of the gastric bypass surgery seen. No other acute findings. IMPRESSION AND RECOMMENDATIONS: Ms. Solis is a 59-year-old woman with a history of Sami-en-Y gastric bypass complicated by a perforated marginal ulcer, status post laparotomy and patch repair, who is admitted with acute onset epigastric pain and nausea and vomiting. Labs unremarkable. Imaging demonstrates possible esophageal wall thickening. The patient has been on a PPI daily. Denies any NSAID use. Suppose esophagitis and recurrent marginal ulcer remain possibilities in this patient. Please continue to keep n.p.o. Continue PPI for now. We will plan for upper endoscopy this afternoon. Thank you very much for this consult. Please contact GI with any acute clinical change. [id number]/[facility] #: [id number] [facility] HOSPITALDavid
[2019-12-31] MEDS: Pantoprazole IV* 40 MG IV SCH (20:37)
[2020-01-01] MEDS: HYDROmorphone INJ* 0.5 MG/0.5 ML SYRINGE IV SLOW PU PRN ×10 (01:39→22:33)
[2020-01-01] MEDS: Ondansetron INJ* 2 MG/ML VIAL IV PRN ×4 (05:33→18:16)
[2020-01-01] MEDS: Multivitamins/Minerals TAB PO SCH (08:13)
[2020-01-01] MEDS: Lactated Ringers 1000 ML Bag* 1,000 ML IV SCH ×2 (08:16→18:19)
[2020-01-01] MEDS: Acetaminophen TAB* 325 MG PO PRN (08:17)
--- NOTE | 2020-01-01 09:57 | PN ---
Progress Note - Progress Note Date of Service: 01/01/20 SOAP: Subjective: Awake in bed in NAD. Reports wretching this morning, + Flatus - BM [] Objective: Vital Signs Temp 97.9 F 01/01/20 07:33 Pulse 75 01/01/20 07:33 Resp 18 01/01/20 09:13 BP 106/59 01/01/20 07:33 Pulse Ox 98 01/01/20 07:33 Intake & Output 12/31/19 01/01/20 01/01/20 18:59 06:59 18:59 Intake Total 980 1282 1375 Output Total 600 1700 700 Balance 380 -418 675 Intake: IV Fluids 980 982 925 LR 980 982 925 Oral 0 300 450 Output: Urine 600 1700 700 Other: Estimated Void Medium Small PEX Gen: NAD Chest: CTAB CVS: RRR ABD: soft, + BS's all quads, + Tender mid abdomen EXT: calves soft non tender [] Assessment:59 yo female s/p rny flip-bypass 2009, perf ulcer 2012, vent/incis hernia repair 2013 admitted with epigastric abdominal pain/nausea/vomiting. admitted for IV hydration and IV PPI, EGD 12/31/2019 found no source. Currently tolerating clears [] Plan: Continue current management, IV PPI, clears. OOB/Ambulate, Observation. []
[2020-01-01 15:56] LABS: ABS Eosinophils 0.1 10^3/ul (0-0.6); ABS Lymphocytes 1.5 10^3/ul (1.0-4.8); ABS Monocytes 0.4 10^3/ul (0-0.8); ABS Neutrophils 3.2 10^3/ul (1.5-7.7); Eosinophil % 2.6 %; Hematocrit 39 % (35-47); Hemoglobin 13.4 g/dL (12.0-16.0); Lymphocyte % 29.1 %; Mean Corpuscular HGB Conc 34 g/dL (31-36); Mean Corpuscular Hemoglobin 30 pg (27-31); Mean Corpuscular Volume 86 fL (80-97); Mean Platelet Volume 8.5 fL (7.4-10.4); Platelet Count 169 10^3/uL (150-450); Red Blood Count 4.52 10^6 /uL (3.70-4.87); Red Cell Distribution Width 13 % (10-15); White Blood Count 5.3 10^3/uL (3.5-10.8)
[2020-01-01 16:13] LABS: BUN/Creatinine Ratio 7.7 (8-20); Calcium 9.2 mg/dL (8.6-10.3); EGFR African American 113.3 (>60); EGFR Non-African American 93.6 (>60); Potassium 3.5 mmol/L (3.5-5.0)
--- NOTE | 2020-01-01 18:25 | PN ---
Progress Note - Progress Note Date of Service: 01/01/20 Note: She continues to report pain and is taking Dilaudid with some relief but pain returns. Upper endoscopy yesterday was unremarkable and labs are normal. F/u AXR shows contrast in colon. I explained to the patient that there is still no explanation for her pain. I discussed her case with Dr. Gonzalez who knows her well and he agreed to see her in the morning for another opinion. At this point, a diagnostic laparoscopy is being considered. She had all her questions answered, stated understanding and agrees to the plan.
[2020-01-01] MEDS: Pantoprazole IV* 40 MG IV SCH (19:52)
[2020-01-02] MEDS: HYDROmorphone INJ* 0.5 MG/0.5 ML SYRINGE IV SLOW PU PRN ×6 (03:06→23:40)
[2020-01-02] MEDS: Lactated Ringers 1000 ML Bag* 1,000 ML IV SCH ×2 (04:19→16:54)
[2020-01-02] MEDS: Multivitamins/Minerals TAB PO SCH (10:16)
--- NOTE | 2020-01-02 10:33 | PN ---
Progress Note - Progress Note Date of Service: 01/02/20 SOAP: Subjective: Patient seen and examined. Chart and imaging reviewed . Case discussed with Dr. Garcia. Patient continues to have upper abdominal pain. Last night was a "difficult night" trying to get her pain under control. The pain will radiate to her back. It is mostly in the upper abdomen. She denies bloating. She has no appetite. No nausea. SHe is passing flatus, but her last bowel movement was Sunday. Patient underwent EGD which was reviewed and showed no evidence of marginal ulcer disease. Biopsy negative. Patient can ambulate without difficulty. Sitting up in bed is not a problem. According to patient, the pain will come on suddenly severe, and only alleviated with narcotic. Pain is described as burning. Objective: Temp Pulse Resp BP Pulse Ox 97.8 F 66 18 112/67 95 01/02/20 07:45 01/02/20 07:45 01/02/20 10:17 01/02/20 07:45 01/02/20 07:45 Intake & Output 01/01/20 01/02/20 01/02/20 22:59 06:59 14:59 Intake Total 1601 989 Output Total 1550 1400 400 Balance 51 -411 -400 Alert and oriented 3, no apparent distress Sclerae are anicteric Lungs clear to auscultation bilaterally Abdomen: Soft, nondistended, tender on deep palpation in the epigastric region. No ventral hernias are noted. No rebound. Normoactive bowel sounds. No CVA tenderness Rectal exam not performed Extremities within normal limits Labs reviewed and within normal limits CT scan reviewed. Questionable reflux contrast remaining in the distal esophagus. Air is noted in the remnant stomach Assessment: Hospital day four for persistent upper abdominal pain. Some days worse than others. No evidence of infection or obstruction. Differential diagnosis includes bile reflux, peptic ulcer disease, gastroenteritis, partial small bowel obstruction Plan: Continued watchful waiting. We will treat for reflux with continued PPI and now start Carafate. \\I have ordered an upper GI Patient aware of the plan of watchful waiting and possible diagnostic laparoscopy in the coming days.
[2020-01-02] MEDS: Sucralfate TAB* 1 GM PO SCH (20:23)
[2020-01-02] MEDS: Pantoprazole IV* 40 MG IV SCH (20:23)
[2020-01-03] MEDS: HYDROmorphone INJ* 0.5 MG/0.5 ML SYRINGE IV SLOW PU PRN ×6 (04:02→21:05)
[2020-01-03] MEDS: Lactated Ringers 1000 ML Bag* 1,000 ML IV SCH (04:04)
[2020-01-03] MEDS: Sucralfate TAB* 1 GM PO SCH ×2 (08:17→21:10)
[2020-01-03] MEDS: Multivitamins/Minerals TAB PO SCH (09:25)
[2020-01-03] MEDS: Polyethylene Glycol 3350* 17 GM PACKET PO SCH (09:25)
--- NOTE | 2020-01-03 12:58 | PN ---
Progress Note - Progress Note Date of Service: 01/03/20 Note: Continues to have abdominal pain and bloating but otherwise feels well. Denies chest pain, SOB, nausea. Tolerating full liquids and would like to try something more solid. Has been ambulating. Passing flatus, no BM. Afebrile. Vital Signs - 12 hr Temp Pulse Resp BP Pulse Ox 01/03/20 11:11 98.5 F 68 16 105/62 98 01/03/20 09:25 18 01/03/20 08:20 18 01/03/20 08:00 18 01/03/20 07:27 98.5 F 60 16 93/55 97 01/03/20 04:16 98.0 F 55 14 103/58 97 01/03/20 04:02 16 Intake & Output 01/02/20 01/03/20 01/03/20 22:59 06:59 14:59 Intake Total 1500 1400 756 Output Total 1700 550 Balance -200 850 756 General: NAD CV: RRR Resp: Clear, breathing comfortably on room air. Abd: Soft, mildly distended, tenderness to palpation over epigastrium. No rebound or guarding. Extremities: Warm, no pedal edema. Neuro: Alert and oriented x3. Moves all extremities equally. AXR: No evidence of obstruction A&P 59F with epigastric abdominal pain, unclear etiology. EGD unremarkable. -Continue carafate and PPI -Advance to soft diet as tolerated. -Continue Miralax -Stop IVF -Encourage OOB/ambulation -DVT ppx: SCDs
[2020-01-03] MEDS: Acetaminophen TAB* 325 MG PO PRN (15:02)
[2020-01-03] MEDS: Simethicone TAB* 80 MG TAB.CHEW PO PRN (19:08)
[2020-01-03] MEDS: Pantoprazole IV* 40 MG IV SCH (21:08)
[2020-01-04] MEDS: HYDROmorphone INJ* 0.5 MG/0.5 ML SYRINGE IV SLOW PU PRN (03:19)
[2020-01-04 04:50] LABS: Hematocrit 39 % (35-47); Hemoglobin 13.1 g/dL (12.0-16.0); Mean Corpuscular HGB Conc 34 g/dL (31-36); Mean Corpuscular Hemoglobin 29 pg (27-31); Mean Corpuscular Volume 87 fL (80-97); Mean Platelet Volume 8.5 fL (7.4-10.4); Platelet Count 176 10^3/uL (150-450); Red Blood Count 4.46 10^6 /uL (3.70-4.87); Red Cell Distribution Width 13 % (10-15); White Blood Count 4.8 10^3/uL (3.5-10.8)
[2020-01-04 04:59] LABS: Magnesium 2.1 mg/dL (1.9-2.7); Potassium 3.9 mmol/L (3.5-5.0)
[2020-01-04 05:05] LABS: BUN/Creatinine Ratio 6.9 (8-20); EGFR African American 129.2 (>60); EGFR Non-African American 106.8 (>60)
[2020-01-04] MEDS: Simethicone TAB* 80 MG TAB.CHEW PO PRN ×2 (07:48→20:57)
[2020-01-04] MEDS: Multivitamins/Minerals TAB PO SCH (09:21)
[2020-01-04] MEDS: Polyethylene Glycol 3350* 17 GM PACKET PO SCH ×2 (09:21→09:22)
[2020-01-04] MEDS: Sucralfate TAB* 1 GM PO SCH ×2 (09:21→20:57)
--- NOTE | 2020-01-04 10:00 | PN ---
Progress Note - Progress Note Date of Service: 01/04/20 Note: Patient tried soft foods yesterday but developed increased abdominal pain and distension. The pain and distension have improved significantly this morning. She is having bowel movements (x4) and passing flatus. Denies chest pain, SOB, nausea. Has been walking multiple times in the hallways. Vital Signs - 12 hr Temp Pulse Resp BP Pulse Ox 01/04/20 07:51 16 01/04/20 07:39 97.6 F 64 16 90/57 96 01/04/20 03:19 16 01/04/20 03:17 97.8 F 69 16 96/60 96 01/03/20 23:55 97.8 F 58 16 106/66 96 01/03/20 22:10 16 Intake & Output 01/03/20 01/04/20 01/04/20 22:59 06:59 14:59 Intake Total 600 800 480 Output Total 1400 1300 350 Balance -800 -500 130 General: NAD CV: RRR Resp: Clear to auscultation Abd: Soft, mildly distended, tenderness in epigastrium and supraumbilical. No rebound or guarding. Extremities: Warm, no pedal edema. Neuro: Alert, oriented x3. Moves all extremities equally. Psych: Normal affect. Laboratory Results - last 24 hr 01/04/20 01/04/20 04:34 04:34 WBC 4.8 RBC 4.46 Hgb 13.1 Hct 39 MCV 87 MCH 29 MCHC 34 RDW 13 Plt Count 176 MPV 8.5 Sodium 139 Potassium 3.9 Chloride 107 Carbon Dioxide 28 Anion Gap 4 BUN 4 L Creatinine 0.58 Est GFR ( Amer) 129.2 Est GFR (Non-Af Amer) 106.8 BUN/Creatinine Ratio 6.9 L Glucose 105 H Calcium 9.0 Phosphorus 4.0 Magnesium 2.1 Vitamin B12 1013 H A&P 59F with persistent epigastric pain, unclear etiology. Continue full liquid diet Continue PPI, carafate Pain control with tylenol and dilaudid Continue ambulation
[2020-01-04] MEDS: Acetaminophen TAB* 325 MG PO PRN (11:52)
[2020-01-04] MEDS: Pantoprazole IV* 40 MG IV SCH (20:58)
[2020-01-05] MEDS: HYDROmorphone INJ* 0.5 MG/0.5 ML SYRINGE IV SLOW PU PRN (09:22)
--- NOTE | 2020-01-05 10:11 | PN ---
CC: [facility]; Primary Care Doctor PROGRESS NOTE: DATE OF VISIT: 01/05/20 HISTORY: I saw Ms. Solis this morning after the weekend where she was followed by my partner. She is a 59-year-old female, status post Sami-en-Y gastric bypass, who has been in our service with complai nts of upper abdominal pain and bloating with intermittent relief throughout her course but without c omplete resolution. The patient had a difficult night, complaining of upper abdominal pain and bloating. She has attempt ed to advance her diet from clears in the last couple of days but with poor results where she would h ave abdominal pain worsening with the addition of full liquids. Her last drink was water at about 7 a.m. She denies any fevers or chills. No night sweats. She is able to sleep at night. She is ambu latory but overall does not feel like herself. PHYSICAL EXAMINATION: Temperature 98, blood pressure 109/72, O2 sat 98 on room air. She is alert an d oriented x3, in no apparent distress. Lungs are clear. Abdomen is distended, tender only on deep p alpation in the epigastrium and in the umbilical region. No hernias are noted. No tenderness to per cussion. No CVA tenderness. Extremities within normal limits with no pitting edema or calf tenderne ss. Documents and radiology reviewed. IMPRESSION: Persistent abdominal pain, differential diagnosis includes internal hernia versus partia l small bowel obstruction versus reflux. My recommendation is diagnostic laparoscopy, possible lapar otomy to run the intestine, rule out internal hernia. I believe this will likely turn into a laparot pérez given the patient's surgical history. I have outlined the details of the procedure, going over t he risks, benefits, and alternatives with Ms. Solis, and she agrees to proceed. We spoke about the al ternatives of watchful waiting. She understands and my recommendation at this time is to proceed wit h surgical intervention. Possible complications were discussed and included, but were not limited to , bleeding, infection, abscess formation, need for bowel resection, leak, prolonged hospitalization, myocardial infarction, stroke, and even . The patient's questions were answered. She will tonny in n.p.o. She will be given a single dose of antibiotics leading up to the operating room. A Verma catheter will be placed at the time of surgery. [id number]/[facility] #: [id number]
[2020-01-05] MEDS: Multivitamins/Minerals TAB PO SCH (11:21)
[2020-01-05] MEDS: Sucralfate TAB* 1 GM PO SCH ×2 (11:21→22:28)
[2020-01-05] MEDS: Polyethylene Glycol 3350* 17 GM PACKET PO SCH (11:21)
[2020-01-05] MEDS ORDERED: ceFAZolin 2 GM in NS PREMIX(*) 2 GM/100 ML BAG IVPB ONE (15:43)
[2020-01-05] MEDS ORDERED: Bupivacaine 0.5% W/EPI SDV* 10 ML VIAL INJ ONE (16:29)
[2020-01-05] MEDS ORDERED: KETAMINE HCL* 50 MG/ML 10 ML VIAL ONE (16:39)
[2020-01-05] MEDS ORDERED: fentaNYL* 50 MCG/ML 2 ML VIAL (100 MCG VIAL) ONE ×2 (16:39→18:55)
[2020-01-05] MEDS ORDERED: HYDROmorphone INJ1* 1 MG/ML SYRINGE ONE (16:40)
[2020-01-05] MEDS ORDERED: Succinylcholine* 20 MG/ML 10 ML VIAL ONE (16:40)
[2020-01-05] MEDS ORDERED: Propofol* 10 MG/ML 20 ML BTL ONE (16:40)
[2020-01-05] MEDS ORDERED: Rocuronium* 10 MG/ML VIAL ONE (16:40)
[2020-01-05] MEDS ORDERED: Midazolam* 1 MG/ML 2 ML VIAL (2 MG) ONE (16:51)
[2020-01-05] MEDS ORDERED: Ketorolac INJ* 30 MG/ML 1 ML VIAL ONE (17:50)
[2020-01-05] MEDS ORDERED: Glycopyrrolate IV* 0.2 MG/ML 1 ML VIAL ONE ×2 (17:50→18:29)
[2020-01-05] MEDS ORDERED: Ondansetron INJ* 2 MG/ML VIAL ONE (17:50)
[2020-01-05] MEDS ORDERED: Polyethylene Glycol 3350* 17 GM PACKET PO PRN (18:45)
[2020-01-05] MEDS ORDERED: HYDROmorphone INJ* 0.5 MG/0.5 ML SYRINGE IV PRN (18:45)
--- NOTE | 2020-01-05 18:45 | OP ---
Operative Report - Blank - Operative Report Note: Operative Note Preoperative Dx: Abdominal Pain Postoperative Dx: Internal Hernia Procedure: Laparoscopic repair of internal hernia Anesthesia: GET Surgeon: Carlos AGUILAR Assist: Treasure PETTIT EBL: <20cc Specimen: none Fluids: crystaloid 2200cc Urine output 100cc Drain: none Findings: as above
[2020-01-05] MEDS ORDERED: DiMENhydriNATE IV* 50 MG/ML VIAL IV PUSH PRN ×2 (18:50→19:32)
[2020-01-05] MEDS ORDERED: Naloxone* 0.4 MG/ML 1 ML VIAL IV PRN (18:50)
[2020-01-05] MEDS ORDERED: DiMENhydriNATE IV* 50 MG/ML VIAL ONE ×2 (18:55→19:34)
[2020-01-05] MEDS: fentaNYL* 50 MCG/ML 2 ML VIAL (100 MCG VIAL) IV PRN ×3 (18:58→19:28)
[2020-01-05] MEDS ORDERED: Scopolamine 1.5 mg* PATCH TRANSDERM PRN (19:31)
[2020-01-05] MEDS ORDERED: Scopolamine 1.5 mg* PATCH ONE (19:34)
[2020-01-05] MEDS: Pantoprazole IV* 40 MG IV SCH (20:36)
[2020-01-06] MEDS: oxyCODONE/Acetamin 5/325 MG* TAB PO PRN ×3 (00:27→20:36)
--- NOTE | 2020-01-06 01:47 | OP ---
CC: [facility]; Primary Care Doctor * DATE OF OPERATION: 01/05/20 - ROOM #332 DATE OF : 62 SURGEON: Darion Gonzalez MD BAND SAW OPERATOR CAKE CUTTING: WILVER Vigil ANESTHESIOLOGIST: Dr. Swann. ANESTHESIA: General. PRE-OP DIAGNOSIS: Abdominal pain POST-OP DIAGNOSIS: Internal hernia. OPERATIVE PROCEDURE: Diagnostic laparoscopy and repair of internal hernia. ESTIMATED BLOOD LOSS: Minimal. FLUIDS: Minimal crystalloid fluid given. See anesthesia report for details. URINE OUTPUT: 200 cc via Verma that was removed at the end of the case. SPECIMEN: None. DRAINS: None. COMPLICATIONS: None. DESCRIPTION OF PROCEDURE: The patient was brought to the operating room, placed on the operating table in the supine position. Preoperative antibiotics were given. Sequential devices were placed on bilateral lower extremities. General anesthesia was induced. The patient's abdomen was prepped and draped in the standard surgical fashion. A time-out was performed. Folds of the umbilicus were elevated anteriorly and a Veress needle was inserted into the abdominal cavity which was then allowed to insufflate to a pressure of 15 mmHg. The patient tolerated the insufflation well. A left upper quadrant 5 mm optical trocar was placed and this was inserted. There was no evidence of injury from the trocar insertion and Veress needle was then removed. A 5-mm port was placed in the umbilicus as well as one in the right upper quadrant. Table was placed in a Trendelenburg right side up position and the cecum was identified. This was elongated and was within normal limits. There was no free fluid in the abdomen and small bowel showed no significant peristalsis. It was pink with some mild injection and areas with dilated lymphatics. The terminal ileum was identified. This was retracted anteriorly and we were able to run the bowel slowly in a retrograde fashion. It was somewhat difficult as we lifted bowel from under the same portion of what ultimately was the Sami limb as it had herniated. Once we made it to the jejunojejunostomy, I think it all took the appropriate orientation. The bowel was not dilated. There were no significant adhesions other than the transverse colon from the anterior abdominal wall. There was no exposed mesh from previous mesh repair. The bowel was run retrograde from the jejunojejunostomy to the stomach pouch. The stomach pouch was somewhat obscured in its entirety from portions of the omentum that were also adhered to the anterior abdominal wall. There was no free fluid up again in the upper abdomen as well. Next, we reviewed the jejunojejunostomy. There appeared to be no defect within its mesentry as we manipulated this. We then turned our attention to the retro Sami limb. This appeared that this could be the most likely culprit since mesentry of the Sami limb appeared to be the source where the bowel was reduced from. A 2-0 silk was then used to suture the Sami limb mesentry to the transverse mesocolon as well as the portion of the omentum at the transverse colon to obliterate this space. It was sutured and removed and review of the abdomen showed no enteric contents. No bleeding. We did not run the intestine again. We let the abdomen collapse. Trocars were removed under direct vision. All 4 skin incisions were reapproximated with 4-0 Monocryl subcuticular sutures, followed by Steri- Strips, sterile dressing. The patient tolerated the procedure well. He was transferred to PACU in stable condition. [id number]/[facility] #: [id number] [facility] HOSPITALDavid
[2020-01-06] MEDS: Sucralfate TAB* 1 GM PO SCH ×2 (08:00→20:37)
[2020-01-06] MEDS: Multivitamins/Minerals TAB PO SCH (08:00)
[2020-01-06] MEDS: Simethicone TAB* 80 MG TAB.CHEW PO PRN (10:26)
--- NOTE | 2020-01-06 11:15 | PN ---
Progress Note - Progress Note Date of Service: 01/06/20 SOAP: Subjective: NAD c/o incisional pain - flatus - BM no N/V [] Objective: Vital Signs Temp 97.9 F 01/06/20 07:23 Pulse 64 01/06/20 07:23 Resp 18 01/06/20 10:26 BP 99/55 01/06/20 07:23 Pulse Ox 98 01/06/20 07:23 Intake & Output 01/05/20 01/06/20 01/06/20 18:59 06:59 18:59 Intake Total 2400 420 120 Output Total 600 700 200 Balance 1800 -280 -80 Weight 141 lb Intake: IV Fluids 2400 200 LR 2300 200 NS 100ML, Cefazolin 2G 100 Oral 0 220 120 Output: Urine 500 700 200 Residual 100 Verma 16 Fr 100 PEX Gen: NAD Chest: CTAB CVS: RRR Abd: Incision dressings C/D/I, Generalized tenderness throughout + BS's, no guarding Ext: calves soft, non tender [] Assessment:59 yo female admitted with abdominal pain s/p neg EGD this admit, prior RNY, Perf Ulcer, Incisional/ventral hernia repair POD 1 S/P diagnostic laparoscopy with repair of internal hernia, no bowel function yet, tolerating clears [] Plan: Convert to PO analgesia except for severe pain, ambulate, encouraged deep breathing, IS, SCD's. Advance diet with return of bowel function D/C Planning []
[2020-01-06] MEDS: Pantoprazole IV* 40 MG IV SCH (20:37)
[2020-01-07 07:12] VITALS: BP 97/57
[2020-01-07] MEDS: Multivitamins/Minerals TAB PO SCH (08:03)
[2020-01-07] MEDS: Simethicone TAB* 80 MG TAB.CHEW PO PRN (08:03)
[2020-01-07] MEDS: Sucralfate TAB* 1 GM PO SCH (08:03)
[2020-01-07] MEDS: oxyCODONE/Acetamin 5/325 MG* TAB PO PRN (08:03)
--- NOTE | 2020-01-07 10:54 | PN ---
Progress Note - Progress Note Date of Service: 01/07/20 SOAP: Subjective: NAD Feeling better pain at incision sites + Flatus Tolerating Full liquid diet Objective: Vital Signs Temp 98.7 F 01/07/20 07:11 Pulse 56 01/07/20 07:11 Resp 18 01/07/20 09:42 BP 97/57 01/07/20 07:11 Pulse Ox 97 01/07/20 08:00 Intake & Output 01/06/20 01/07/20 01/07/20 18:59 06:59 18:59 Intake Total 760 2200 360 Output Total 1100 2800 200 Balance -340 -600 160 Intake: Oral 760 2200 360 Output: Urine 1100 2800 200 PEX GEN: NAD Chest: CTAB CVS: RRR ABD: incision dressings C/D/I, mild tender to palp soft, + BS's EXT: calves soft, non tender Assessment: 59 yo female admitted with abdominal pain s/p neg EGD this admit, prior RNY, Perf Ulcer, Incisional/ventral hernia repair POD 2 S/P diagnostic laparoscopy with repair of internal hernia, no bowel function yet, tolerating fulls Plan: D/C Home today on fulls, advance as tolerated to pre hospital bariatric diet. F/U with Dr Gonzalez next week as scheduled. RXfor 5 percocets sent to [facility]. D/W Dr Garcia
--- NOTE | 2020-01-08 15:32 | DS ---
Discharge Summary Surgeon: Carlos AGUILAR Admit Date: 12/30 2019 Discharge Date:01/07/2020 Admission DX: Abdominal Pain Discharge DX: S/P Diagnostic Laparoscopy and repair of Internal Hernia Condition at Discharge:Stable Date of D/C PEX: Chest: CTAB ABD: Incision site tegaderms over 2x2 C/D/I EXT: calves soft non tender Procedures Performed: Diagnostic Laparoscopy with repair of internal hernia 01/05 HPI/Hospital Course: Patient with PMH sig for RNY Bypass 2009, Gastric Ulcer 2012, Abdominal/Ventral hernia repair 2013 presented with epigastric abdominal pain. EGD 12/31/2019 show no ulcer or pathology. Continued conservative management, clear liquid diet, carafate, were not effective. Taken to the OR for a diagnostic lapariscopy on 01/05/2020 where an internal hernia was found and repaired. Tolerated well and returned to the [facility] for post operative care. Clear liquid diet was started post operatively. Post op day one the patients pain was mainly incisional on POD 2 was feeling better, passing gas, tolerated fulls, wanted to go home. Discharge instructions were given to the patient regarding Diet, Medications, Activity, and post operative Follow up. All Questions were answered. Discharged Home in Stable Condition on 01/07/2020
[2020-01-08] MEDS ORDERED: Scopolamine PATCH Remove* 1 NOTE MISC PATCH OFF ONE (19:30)
== END 2020-01-07 11:20 | disposition home or self-care (01) | DRG 358 ==
LOC: ED 14:06 → SSU 18:55 → OBSVTOIN 01-01 14:39
PROVIDERS: ADMIT Surgery; ATTEND Surgery
PROC: 0DQV4ZZ Repair Mesentery, Percutaneous Endoscopic Approach (ICD-10-PCS; principal; 2019-12-31)
PROC: 0DDA8ZX Extraction of Jejunum, Via Natural or Artificial Opening Endoscopic, Diagnostic (ICD-10-PCS; 2020-01-05)
PROC: 0DD68ZX Extraction of Stomach, Via Natural or Artificial Opening Endoscopic, Diagnostic (ICD-10-PCS; 2020-01-05)
DX: K46.9 Unspecified abdominal hernia without obstruction or gangrene (principal); K45.8 Other specified abdominal hernia without obstruction or gangrene; K21.9 Gastro-esophageal reflux disease without esophagitis; D50.9 Iron deficiency anemia, unspecified; Z98.84 Bariatric surgery status; Z79.899 Other long term (current) drug therapy; Z88.8 Allergy status to other drugs, medicaments and biological substances; Z80.3 Family history of malignant neoplasm of breast; Z80.49 Family history of malignant neoplasm of other genital organs; Z80.1 Family history of malignant neoplasm of trachea, bronchus and lung; Z80.8 Family history of malignant neoplasm of other organs or systems; Z87.891 Personal history of nicotine dependence
CPT/HCPCS: 36415; 74019; 74177; 74246; 80048; 80053; 82607; 83690; 83735; 84100; 84484; 85025; 85027; 85610; 87077; 88305; 93005; 96361; 96374; 96375; 99284; A9270-GY; G0378; J0330; J0690; J0780; J1170; J1240; J1885; J2250; J2270; J2405; J2704; J3010; Q9967